=== PATIENT | male | born 1970 | race Caucasian/White ===

== ENCOUNTER 2023-07-19 13:46 | Inpatient (IN) | payer OTHER, MEDICAID ==
[~2023-07-19] VITALS: Ht 172.7 cm; Wt 72.6 kg
[2023-07-19 14:38] VITALS: BP 105/73; PULSE 98; RESP 16; TEMP 98.1; O2SAT 100
[2023-07-19] MEDS: ACETAMINOPHEN EXTRA STRENGTH 500 MG TAB PO ONE (15:29)
[2023-07-19] MEDS: KETOROLAC 30 MG/ML VIAL IM ONE (15:31)
[2023-07-19 15:32] LABS: BASOPHILS # (AUTO) 0.1 K/uL (0.00-0.22); BASOPHILS % (AUTO) 0.6 % (0.0-2.0); EOSINOPHILS # (AUTO) 0.1 K/uL (0-0.4); EOSINOPHILS % (AUTO) 0.8 % (0.0-4.0); HEMATOCRIT 47.6 % (36-52); HEMOGLOBIN 16.1 g/dL (12.0-18.0); LYMPHOCYTES # (AUTO) 2.4 K/uL (2.0-11.5); LYMPHOCYTES % (AUTO) 19.9 % (20.5-51.1); MEAN CORPUSCULAR HEMOGLOBIN 31 pg (27-31); MEAN CORPUSCULAR HGB CONC 34 g/dL (33-37); MONOCYTES # (AUTO) 1.3 K/uL (0.8-1.0); MONOCYTES % (AUTO) 10.9 % (1.7-9.3); NEUTROPHILS # (AUTO) 8.3 K/uL (1.8-7.7); NEUTROPHILS % (AUTO) 67.8 % (42.2-75.2); PLATELET COUNT (AUTO) 290 K/uL (140-450); RED BLOOD CELL COUNT(AUTO) 5.12 MIL/uL (4.20-6.10); RED CELL DISTRIBUTION WIDTH 13.1 % (11.6-13.7); WHITE BLOOD COUNT (AUTO) 12.2 K/uL (4.8-10.8)
[2023-07-19 15:58] LABS: FLU A ANTIGEN negative (NEGATIVE); FLU B ANTIGEN NEGATIVE (NEGATIVE)
[2023-07-19 15:59] LABS: ANION GAP 19.3 (8-16); CALCIUM 9.4 mg/dL (8.5-10.1); CARBON DIOXIDE 19.8 mmol/L (21-32); CREATININE 1.3 mg/dL (0.6-1.3); POTASSIUM 4.1 mmol/L (3.5-5.1)
[2023-07-19] MEDS: NACL 0.9% 1,000 ML IV ONE (17:43)
[2023-07-19] MEDS: KETOROLAC 30 MG/ML VIAL IVP ONE (18:25)
[2023-07-19 19:23] VITALS: O2SAT 98
[2023-07-19] MEDS ORDERED: LORazepam 1 MG TAB PO PRN (19:55)
[2023-07-19] MEDS ORDERED: ZOLPIDEM 5 MG TAB PO PRN (19:55)
[2023-07-19] MEDS ORDERED: ONDANSETRON 4 MG/2 ML VIAL IVP PRN (19:55)
[2023-07-19] MEDS ORDERED: NITROGLYCERIN 0.4 MG TAB SL PRN (20:00)
[2023-07-19] MEDS: ASPIRIN 81 MG TAB.CHEW PO SCH (20:49)
[2023-07-19] MEDS: carvediloL 3.125 MG TAB PO SCH (21:00)
[2023-07-19 21:59] VITALS: PULSE 68
[2023-07-19] MEDS: SIMVASTATIN 20 MG TAB PO SCH (22:10)
[2023-07-19 22:15] VITALS: PULSE 60; RESP 17; O2SAT 95
[2023-07-19] MEDS ORDERED: HYDR-1090 PO (22:24)
[2023-07-20] VITALS: BP 97/63; PULSE 59; PULSE 60; RESP 17; TEMP 98.8; O2SAT 94
[2023-07-20 04:00] VITALS: BP 100/54; PULSE 60; RESP 17; TEMP 98.1; O2SAT 95
[2023-07-20 06:56] LABS: BASOPHILS % (AUTO) 0.5 % (0.0-2.0); EOSINOPHILS # (AUTO) 0.1 K/uL (0-0.4); EOSINOPHILS % (AUTO) 1.9 % (0.0-4.0); LYMPHOCYTES # (AUTO) 2.4 K/uL (2.0-11.5); LYMPHOCYTES % (AUTO) 32.5 % (20.5-51.1); MEAN CORPUSCULAR HEMOGLOBIN 32 pg (27-31); MEAN CORPUSCULAR HGB CONC 34 g/dL (33-37); MEAN CORPUSCULAR VOLUME 91.9 fL (80-94); MONOCYTES # (AUTO) 0.8 K/uL (0.8-1.0); MONOCYTES % (AUTO) 10.3 % (1.7-9.3); NEUTROPHILS # (AUTO) 4.1 K/uL (1.8-7.7); NEUTROPHILS % (AUTO) 54.8 % (42.2-75.2); PLATELET COUNT (AUTO) 257 K/uL (140-450); RED BLOOD CELL COUNT(AUTO) 4.46 MIL/uL (4.20-6.10); RED CELL DISTRIBUTION WIDTH 13.1 % (11.6-13.7); WHITE BLOOD COUNT (AUTO) 7.4 K/uL (4.8-10.8)
[2023-07-20 07:19] LABS: ALBUMIN 3.4 g/dL (3.4-5.0); ANION GAP 12.9 (8-16); CALCIUM 8.6 mg/dL (8.5-10.1); CARBON DIOXIDE 24.7 mmol/L (21-32); CREATININE 1.1 mg/dL (0.6-1.3); POTASSIUM 3.6 mmol/L (3.5-5.1)
[2023-07-20 08:00] VITALS: BP 97/63; PULSE 59; PULSE 60; PULSE 66; RESP 17; RESP 18; TEMP 98.8; O2SAT 94
[2023-07-20] MEDS: LOSARTAN 25 MG TAB PO SCH (08:19)
[2023-07-20] MEDS: DOCUSATE SODIUM 100 MG GELCAP PO SCH (08:20)
[2023-07-20 10:54] LABS: TOTAL PROTEIN, SERUM 6.6 g/dL (6.4-8.2)
[2023-07-20 12:00] VITALS: BP 100/63; PULSE 64; PULSE 71; RESP 18; TEMP 98.1; O2SAT 100
[2023-07-20 16:00] VITALS: BP 109/70; PULSE 60; PULSE 70; RESP 18; TEMP 97.8; O2SAT 97
[2023-07-20] MEDS: HYDROcodone/APAP 5/325 MG 1 TAB TAB PO PRN (16:36)
[2023-07-20] MEDS: MORPHINE SULFATE 2 MG/ML SYR IVP PRN (18:01)
[2023-07-20] MEDS ORDERED: NITROGLYCERIN 0.4 MG TAB SL PRN (18:15)
[2023-07-20 20:00] VITALS: BP 109/68; PULSE 65; RESP 18; TEMP 98.1; O2SAT 97
[2023-07-21] VITALS: BP 105/60; PULSE 60; RESP 17; TEMP 97.8; O2SAT 97
[2023-07-21] MEDS: ALUMINUM HYD/MAG/SIMETHICONE 30 ML UDC PO PRN (03:13)
[2023-07-21 04:00] VITALS: BP 109/66; PULSE 61; RESP 18; TEMP 98; O2SAT 95
[2023-07-21] MEDS: LOPERAMIDE 2 MG CAP PO PRN (04:31)
[2023-07-21 07:15] LABS: BASOPHILS % (AUTO) 0.1 % (0.0-2.0); EOSINOPHILS # (AUTO) 0.1 K/uL (0-0.4); EOSINOPHILS % (AUTO) 2.2 % (0.0-4.0); HEMATOCRIT 40.5 % (36-52); LYMPHOCYTES # (AUTO) 2.1 K/uL (2.0-11.5); LYMPHOCYTES % (AUTO) 33.5 % (20.5-51.1); MEAN CORPUSCULAR HEMOGLOBIN 32 pg (27-31); MEAN CORPUSCULAR HGB CONC 35 g/dL (33-37); MEAN CORPUSCULAR VOLUME 91.8 fL (80-94); MONOCYTES # (AUTO) 0.7 K/uL (0.8-1.0); MONOCYTES % (AUTO) 10.4 % (1.7-9.3); NEUTROPHILS # (AUTO) 3.4 K/uL (1.8-7.7); NEUTROPHILS % (AUTO) 53.8 % (42.2-75.2); PLATELET COUNT (AUTO) 234 K/uL (140-450); RED BLOOD CELL COUNT(AUTO) 4.42 MIL/uL (4.20-6.10); RED CELL DISTRIBUTION WIDTH 13.2 % (11.6-13.7); WHITE BLOOD COUNT (AUTO) 6.3 K/uL (4.8-10.8)
[2023-07-21 08:00] VITALS: BP 111/69; PULSE 61; PULSE 63; RESP 18; TEMP 98.1; O2SAT 98
[2023-07-21 08:08] LABS: ALBUMIN 3.5 g/dL (3.4-5.0); ANION GAP 12.1 (8-16); CALCIUM 8.8 mg/dL (8.5-10.1); CARBON DIOXIDE 26.5 mmol/L (21-32); CREATININE 0.9 mg/dL (0.6-1.3); POTASSIUM 3.6 mmol/L (3.5-5.1); TOTAL BILIRUBIN 0.6 mg/dL (0.0-1.0); TOTAL PROTEIN, SERUM 6.7 g/dL (6.4-8.2)
[2023-07-21] MEDS ORDERED: CARV3.122 PO (11:32)
[2023-07-21] MEDS ORDERED: LOSA-269 PO (11:32)
[2023-07-21] MEDS ORDERED: SIMV-30 PO (11:32)
[2023-07-21] MEDS ORDERED: ASPI81CT95 PO (11:32)
[2023-07-21 16:00] VITALS: BP 118/75; PULSE 63; RESP 18; TEMP 97.6; O2SAT 96
== END 2023-07-21 17:27 | disposition home or self-care (01) | DRG 313 ==
LOC: MED 13:46 → MTU 19:53
PROVIDERS: ADMIT Student in an Organized Health Care Education/Training Program; ATTEND Student in an Organized Health Care Education/Training Program
DX: R07.89 Other chest pain (principal); Z59.00 Homelessness unspecified; Z79.899 Other long term (current) drug therapy
CPT/HCPCS: 36415; 71045; 80048; 80053; 83880; 84484; 85025; 87081; 96372; 96374; 99285; J1644; J1885; J2270